=== PATIENT | female | born 1985 | race Caucasian/White ===

== ENCOUNTER → 2017-11-23 | Outpatient (CLI) | payer BC ==
[2017-11-23 16:37] LABS: HEMATOCRIT 40.6 % (37.0-47.0); HEMOGLOBIN 13.6 g/dl (12.0-16.0); MEAN CELL VOLUME 98.8 fl (81.0-99.0); MEAN CORPUSCULAR HGB 33.1 pg (27.0-31.0); MEAN CORPUSCULAR HGB CONC 33.5 g/dl (33.0-37.0); MEAN PLATELET VOLUME 10.4 fl (9.6-12.3); RED BLOOD COUNT 4.11 10*6/uL (4.10-5.10); RED CELL DISTRI WIDTH 12.7 % (0-14.5); WHITE BLOOD COUNT 8.2 10*3/uL (4.8-10.8)
[2017-11-23 16:53] LABS: ALBUMIN 3.6 gm/dl (3.1-4.5); ALKALINE PHOSPHATASE 82 U/L (45-117); BUN 16 mg/dl (7-24); CHLORIDE 106 mmol/L (98-107); CHOLESTEROL 185 mg/dL (<200); CREATININE 0.87 mg/dL (0.55-1.02); HDL CHOLESTEROL 49 mg/dl (40-60); LDL CHOLESTEROL 108 mg/dL (9-159); POTASSIUM 4.4 mmol/L (3.5-5.1); SGOT/AST 14 IU/L (3-35); SGPT/ALT 20 U/L (12-78); SODIUM 140 mmol/L (136-145); TOTAL PROTEIN 7.3 gm/dL (6.4-8.2); TRIGLYCERIDES 138 mg/dl (<150); VLDL CHOLESTEROL 28 mg/dL (6-40)
== END | disposition home or self-care (01) ==
LOC: LAB 16:20
PROVIDERS: Family Medicine
DX: F41.1 Generalized anxiety disorder (principal); E78.00 Pure hypercholesterolemia, unspecified; R53.83 Other fatigue

== ENCOUNTER → 2018-08-25 | Outpatient (CLI) | payer SELFPAY ==
[2018-08-25 10:11] LABS: HEMOGLOBIN 14.3 g/dl (12.0-16.0); MEAN CELL VOLUME 100.7 fl (81.0-99.0); MEAN CORPUSCULAR HGB 35.1 pg (27.0-31.0); MEAN CORPUSCULAR HGB CONC 34.9 g/dl (33.0-37.0); MEAN PLATELET VOLUME 10.1 fl (9.6-12.3); RED BLOOD COUNT 4.07 10*6/uL (4.10-5.10); WHITE BLOOD COUNT 7.4 10*3/uL (4.8-10.8)
[2018-08-25 10:35] LABS: ALBUMIN 3.4 gm/dl (3.1-4.5); BUN 14 mg/dl (7-24); CHLORIDE 107 mmol/L (98-107); CREATININE 0.97 mg/dL (0.55-1.02); POTASSIUM 3.8 mmol/L (3.5-5.1); SGOT/AST 15 IU/L (3-35); SGPT/ALT 22 U/L (12-78); SODIUM 140 mmol/L (136-145)
[2018-08-25 10:45] LABS: ALKALINE PHOSPHATASE 84 U/L (45-117); FREE T4 0.85 ng/dl (0.76-1.46); TOTAL PROTEIN 7.3 gm/dL (6.4-8.2)
[2018-08-27 00:05] LABS: TESTOSTERONE FREE, (DIRECT) 0.9 pg/mL (0.0-4.2)
== END | disposition home or self-care (01) ==
LOC: LAB 09:19
PROVIDERS: Family Medicine
DX: E74.00 Glycogen storage disease, unspecified (principal); F41.1 Generalized anxiety disorder; E55.9 Vitamin D deficiency, unspecified; R53.83 Other fatigue; R63.5 Abnormal weight gain; L68.0 Hirsutism

== ENCOUNTER → 2019-10-04 | Outpatient (CLI) | payer BC | END | disposition home or self-care (01) | LOC: RAD 18:39 | DX: R05 Cough (principal); R06.02 Shortness of breath ==

== ENCOUNTER → 2021-08-19 | Outpatient (CLI) | payer BC ==
[2021-08-19 07:53] LABS: HEMATOCRIT 39.9 % (37.0-47.0); MEAN CELL VOLUME 98.5 fl (81.0-99.0); MEAN CORPUSCULAR HGB 33.8 pg (27.0-31.0); MEAN CORPUSCULAR HGB CONC 34.3 g/dl (33.0-37.0); MEAN PLATELET VOLUME 9.5 fl (9.6-12.3); RED BLOOD COUNT 4.05 10*6/uL (4.10-5.10); RED CELL DISTRI WIDTH 12.4 % (0-14.5); WHITE BLOOD COUNT 5.5 10*3/uL (4.8-10.8)
[2021-08-19 08:41] LABS: ALBUMIN 3.8 gm/dl (3.1-4.5); ALKALINE PHOSPHATASE 80 U/L (45-117); BUN 12 mg/dl (7-24); CHLORIDE 111 mmol/L (98-107); CHOLESTEROL 186 mg/dL (<200); CREATININE 0.93 mg/dL (0.55-1.02); LDL CHOLESTEROL 104 mg/dL (9-159); POTASSIUM 3.6 mmol/L (3.5-5.1); SGOT/AST 11 IU/L (3-35); SGPT/ALT 16 U/L (12-78); SODIUM 143 mmol/L (136-145); TOTAL PROTEIN 7.1 gm/dL (6.4-8.2); TRIGLYCERIDES 71 mg/dl (<150)
[2021-08-19 09:23] LABS: VITAMIN D, 25-HYDROXY 27.9 ng/mL (30-100)
== END | disposition home or self-care (01) ==
LOC: LAB 07:34
PROVIDERS: ATTEND Family Medicine
DX: Z00.00 Encounter for general adult medical examination without abnormal findings (principal); E55.9 Vitamin D deficiency, unspecified; R53.83 Other fatigue; F41.1 Generalized anxiety disorder; E74.00 Glycogen storage disease, unspecified

== ENCOUNTER 2021-10-12 21:04 | Emergency (ER) | payer SELFPAY ==
[~2021-10-12] VITALS: Ht 170.1 cm; Wt 74.8 kg
[2021-10-12 21:29] LABS: BILIRUBIN Negative (Negative); BLOOD 3+ (Negative); CLARITY Turbid (Clear); COLOR Yellow (Yellow); GLUCOSE Negative (Negative); KETONE Trace (Negative); LEUKO ESTERASE 3+ (Negative); NITRITE Negative (Negative); SPECIFIC GRAVITY 1.025 (1.001-1.030)
[2021-10-12 21:38] LABS: BASO % 0.3 % (0.0-1.0); EOS # 0.1 10*3/uL (0.0-0.4); EOS % 0.8 % (1.0-4.0); HEMATOCRIT 40.9 % (37.0-47.0); LYMPH # 2.1 10*3/uL (1.3-4.4); LYMPH % 21.2 % (27.0-41.0); MEAN CELL VOLUME 99.3 fl (81.0-99.0); MEAN CORPUSCULAR HGB 33.7 pg (27.0-31.0); MEAN PLATELET VOLUME 9.7 fl (9.6-12.3); MONO # 0.8 10*3/uL (0.1-1.0); MONO % 7.9 % (3.0-9.0); NEUT % 69.4 % (47.0-73.0); PLATELET COUNT AUTOMATED 262 10*3/uL (130-400); RED BLOOD COUNT 4.12 10*6/uL (4.10-5.10); RED CELL DISTRI WIDTH 12.5 % (0-14.5)
[2021-10-12 21:44] LABS: BACTERIA 4+; WBC 51-100 wbc/hpf (0-5)
[2021-10-12 21:51] LABS: ALKALINE PHOSPHATASE 81 U/L (45-117); BUN 15 mg/dl (7-24); CHLORIDE 110 mmol/L (98-107); CREATININE 0.89 mg/dL (0.55-1.02); POTASSIUM 3.6 mmol/L (3.5-5.1); SGOT/AST 13 IU/L (3-35); SGPT/ALT 18 U/L (12-78); SODIUM 140 mmol/L (136-145); TOTAL PROTEIN 7.1 gm/dL (6.4-8.2)
[2021-10-12] MEDS ORDERED: CEFUROXIME AXE500 MG PO (21:53)
[2021-10-12] MEDS ORDERED: PYRIDIUM100 MG PO (21:53)
== END 2021-10-12 23:26 | disposition home or self-care (01) ==
LOC: ED 21:04
PROVIDERS: Nurse Practitioner Family
DX: N39.0 Urinary tract infection, site not specified (principal)

== ENCOUNTER 2021-10-15 08:29 | Emergency (ER) | payer SELFPAY ==
[~2021-10-15] VITALS: Wt 74.8 kg
[~2021-10-15 08:29] MED LIST: CEFUROXIME AXE500 MG PO; PYRIDIUM100 MG PO
== END 2021-10-15 11:15 | disposition left against medical advice (07) ==
LOC: ED 08:29
DX: Z53.21 Procedure and treatment not carried out due to patient leaving prior to being seen by health care provider (principal)

== ENCOUNTER 2021-10-16 11:18 | Emergency (ER) | payer SELFPAY ==
[~2021-10-16] VITALS: Ht 170.1 cm; Wt 74.8 kg
[2021-10-16 12:13] LABS: BASO % 0.3 % (0.0-1.0); EOS # 0.1 10*3/uL (0.0-0.4); EOS % 0.7 % (1.0-4.0); HEMATOCRIT 37.6 % (37.0-47.0); LYMPH # 1.4 10*3/uL (1.3-4.4); LYMPH % 20.1 % (27.0-41.0); MEAN CELL VOLUME 98.9 fl (81.0-99.0); MEAN CORPUSCULAR HGB 34.2 pg (27.0-31.0); MEAN CORPUSCULAR HGB CONC 34.6 g/dl (33.0-37.0); MEAN PLATELET VOLUME 9.6 fl (9.6-12.3); MONO # 0.6 10*3/uL (0.1-1.0); MONO % 8.6 % (3.0-9.0); NEUT # 4.8 10*3/uL (2.3-7.9); PLATELET COUNT AUTOMATED 209 10*3/uL (130-400); RED CELL DISTRI WIDTH 12.7 % (0-14.5); WHITE BLOOD COUNT 6.8 10*3/uL (4.8-10.8)
[2021-10-16 12:31] LABS: ALKALINE PHOSPHATASE 65 U/L (45-117); BUN 9 mg/dl (7-24); CHLORIDE 111 mmol/L (98-107); CREATININE 0.92 mg/dL (0.55-1.02); POTASSIUM 3.6 mmol/L (3.5-5.1); SGOT/AST 13 IU/L (3-35); SGPT/ALT 17 U/L (12-78); SODIUM 141 mmol/L (136-145)
== END 2021-10-16 14:43 | disposition home or self-care (01) ==
LOC: ED 11:18
PROVIDERS: Internal Medicine
DX: N20.0 Calculus of kidney (principal)

== ENCOUNTER 2024-04-30 07:16 | Emergency (ER) | payer SELFPAY ==
[~2024-04-30] VITALS: Ht 170.1 cm; Wt 77.1 kg
[2024-04-30] MEDS ORDERED: CITALOPRAM20 MG PO (07:33)
[2024-04-30] MEDS ORDERED: CITALOPRAM40 MG PO (07:33)
[2024-04-30] MEDS ORDERED: BUPROPION HYDR150 M1 PO (07:33)
[2024-04-30] MEDS ORDERED: SODIUM CHLORIDE 0.9% 1,000 ML IV ONE (07:40)
[2024-04-30] MEDS ORDERED: MORPHINE Sulfate 2 MG/ML SYR IV ONE (07:40)
[2024-04-30] MEDS ORDERED: Ketorolac Tromethamine 15 MG/ML VIAL IV ONE (07:40)
[2024-04-30] MEDS ORDERED: Ondansetron Hydrochloride 4 MG/2 ML VIAL IV ONE (07:40)
[2024-04-30 07:47] LABS: BASO % 0.6 % (0.0-1.0); EOS # 0.1 10*3/uL (0.0-0.4); EOS % 1.4 % (1.0-4.0); HEMATOCRIT 40.9 % (37.0-47.0); LYMPH % 29.9 % (27.0-41.0); MEAN CELL VOLUME 100.7 fl (81.0-99.0); MEAN CORPUSCULAR HGB 34.5 pg (27.0-31.0); MEAN CORPUSCULAR HGB CONC 34.2 g/dl (33.0-37.0); MEAN PLATELET VOLUME 9.7 fl (9.6-12.3); MONO # 0.4 10*3/uL (0.1-1.0); MONO % 6.1 % (3.0-9.0); NEUT # 4.1 10*3/uL (2.3-7.9); NEUT % 61.8 % (47.0-73.0); PLATELET COUNT AUTOMATED 247 10*3/uL (130-400); RED BLOOD COUNT 4.06 10*6/uL (4.10-5.10); RED CELL DISTRI WIDTH 11.9 % (0-14.5); WHITE BLOOD COUNT 6.6 10*3/uL (4.8-10.8)
[2024-04-30 07:57] LABS: BILIRUBIN Negative (Negative); BLOOD 2+ (Negative); CLARITY Cloudy (Clear); COLOR Yellow (Yellow); GLUCOSE Negative (Negative); KETONE Negative (Negative); LEUKO ESTERASE 2+ (Negative); NITRITE Negative (Negative); PH 5.5 (4.5-8.0); SPECIFIC GRAVITY 1.025 (1.001-1.030)
[2024-04-30 08:04] LABS: RBC 21-30 rbc/hpf (0-2)
[2024-04-30 08:05] LABS: BACTERIA 2+; EPITHELIAL CELLS 41-50; MUCOUS 1+; WBC 31-40 wbc/hpf (0-5)
[2024-04-30 08:09] LABS: BUN 15 mg/dl (9-23); CHLORIDE 107 mmol/L (98-107)
[2024-04-30] MEDS ORDERED: Ondansetron4 MG PO (08:54)
[2024-04-30] MEDS ORDERED: FLOMAX0.4 MG PO (08:54)
[2024-04-30] MEDS ORDERED: CIPRO500 MG PO (08:54)
[2024-04-30] MEDS ORDERED: PERCOCET 5-3251 EACH PO (08:54)
== END 2024-04-30 09:05 | disposition home or self-care (01) ==
LOC: ED 07:16
PROVIDERS: Emergency Medicine
DX: N20.0 Calculus of kidney (principal); N39.0 Urinary tract infection, site not specified; R11.2 Nausea with vomiting, unspecified; F32.A Depression, unspecified; F41.9 Anxiety disorder, unspecified; Z98.890 Other specified postprocedural states